=== PATIENT | male | born 1950 | race Caucasian/White ===

== ENCOUNTER 2021-04-03 13:32 | Outpatient (REF) | payer MEDICARE, OTHER, SELFPAY ==
[2021-04-03 13:59] LABS: MANUAL DIFF FLAG NO
[2021-04-03 14:04] LABS: Basophils Percent Auto 0.1 % (0-2); Eosinophils Absolute Auto 0.7 X10*3/uL (0.0-0.4); Eosinophils Percent Auto 9.3 % (0-4); Hematocrit 25.8 % (42.0-52.0); Hemoglobin 8.7 g/dl (14.0-18.0); Imm Gran Abs Auto 0.03 X10*3/uL (0.00-0.03); Imm Gran Pct Auto 0.4 % (0.0-0.4); Lymphocytes Absolute Auto 1.3 X10*3/uL (1.2-4.9); Lymphocytes Percent Auto 18.8 % (20-40); Mean Corpuscular HGB Conc 33.7 g/dl (31.0-36.0); Mean Corpuscular Hemoglobin 30.9 pg (27.0-33.0); Mean Corpuscular Volume 91.5 fL (80.0-98.0); Mean Platelet Volume 10.9 fL (9.4-12.4); Monocytes Absolute Auto 0.6 X10*3/uL (0.1-1.2); Monocytes Percent Auto 8.5 % (2-11); Neutrophils Absolute Auto 4.4 x10*3/uL (2.0-8.3); Neutrophils Percent Auto 62.9 % (45-73); Platelet Count 226 X10*3/uL (160-400); Red Blood Count 2.82 X10*6/uL (4.60-5.80); Red Cell Distribution Width 19.2 % (11.0-16.0)
[2021-04-03 14:28] LABS: Anion Gap 16 (12-20); Blood Urea Nitrogen 55 mg/dL (9-16); Carbon Dioxide 28 mmol/L (22-29); Chloride 92 mmol/L (96-108); Estimated Glomerular Filt Rate 19; Magnesium 1.7 mg/dL (1.6-2.6); Potassium 5.1 mmol/L (3.3-5.1); Sodium 131 mmol/L (135-145)
== END 2021-04-03 13:33 | disposition home or self-care (01) ==
LOC: HO.LNP 13:32
PROVIDERS: Visit Provider Thoracic Surgery (Cardiothoracic Vascular Surgery)
DX: N19 Unspecified kidney failure (principal); I25.10 Atherosclerotic heart disease of native coronary artery without angina pectoris
CPT/HCPCS: 80051; 82565; 83735; 84520; 85025